=== PATIENT | male | born 1980 | race Hispanic/Latino ===

== ENCOUNTER 2024-08-18 08:53 | Emergency (ER) | payer MEDICARE ==
[~2024-08-18] VITALS: Ht 160 cm; Wt 101.2 kg
--- NOTE | 2024-08-18 10:12 | ERN ---
General Chief Complaint: Eye Problems Stated Complaint: EYE PROBLEM Time Seen by MD: 08:56 History of Present Illness Initial Comments 44-year-old male, history of diabetes, anxiety, hypertension, dyslipidemia, presents for right upper eyelid redness and discharge beginning yesterday. No systemic symptoms. Allergies: Coded Allergies: No Known Drug Allergies (Unverified Allergy, Unknown, 08/18/24) Past Medical History Past Medical History: Anxiety, Diabetes-Type II, High Cholesterol, Hypertension Medical History Other: DEVELOPMENTAL DELAYED Past Surgical History: None ROS Dictation CONSTITUTIONAL: No chills, no fever, no weakness, no diaphoresis, no malaise. HEAD/FACE: No signs of trauma. EENT: Right eyelid swelling and pain RESPIRATORY: No cough, no orthopnea, no SOB, no stridor, no wheezing. CARDIOVASCULAR: No chest pain, no edema, no palpitations, no syncope. GASTROINTESTINAL/ABDOMINAL: No abdominal pain, no constipation, no diarrhea, no nausea, no vomiting. GENITOURINARY: No abnormal discharge, no dysuria, no frequent urination, no hematuria. No complaints of pain in the genitals. MUSCULOSKELETAL: No back pain, no gout, no joint pain, no joint swelling, no muscle pain, no muscle stiffness, no neck pain. INTEGUMENTARY: No change in color, no change in hair/nails, no dryness, no lesion, no lumps, no rash. NEUROLOGICAL/PSYCH: No anxiety, not depressed, no emotional problem, no head ache, no numbness, no pre-existing deficit, no history of seizures, no tremors, no weakness. HEMATOLOGIC/LYMPHATIC: Not anemic, no history of blood clots, no apparent bleeding, no bruising, glands not swollen. All Systems Negative, Except as Noted. Physical Exam Physical Exam Dictation VITAL SIGNS: Reviewed. GENERAL APPEARANCE: Alert, oriented x3, no acute distress, obese. HEAD AND FACE: Non-traumatic. EYES: PERRL, pink conjunctivas, eyelid no trauma, anterior chamber clear. Right upper eyelid erythema and redness and swelling EARS: Pinnas intact and no signs of trauma or erythema. Ear canals clear and no discharge. TMs no erythema. NOSE: No discharge, no bleeding. OROPHARYNX: Mouth normal, teeth no caries, tongue pink. Pharynx clear, no erythema. Tonsils no exudates, no abscesses noted. Mucous membrane moist. NECK: Supple, non-tender, no thyromegaly, no masses, no JVD, no bruits. BREAST: Deferred. CHEST: No tenderness, no crepitus, no paradoxical movement, no retractions. LUNGS: Clear, well-ventilated, symmetric, no rales, no wheezing, no rhonchi, no stridor, good breath sounds bilaterally. HEART: Regular rate, regular rhythm, no murmur, no gallops. VASCULAR: No peripheral edema. ABDOMEN: Soft, positive bowel sounds, nondistended, no guarding, nontender, no rebound, no masses no hepatomegaly, no splenomegaly, no East's sign, no hernias. RECTAL: Deferred. GENITAL: Deferred. NEUROLOGICAL: Normal speech, gross motor function intact, gross sensory function intact. MUSCULOSKELETAL: Neck nontender, full range of motion, back nontender, full range of motion. EXTREMITIES: Nontender, full range of motion. SKIN: Color pink, dry, no turgor, no rash, no lacerations, no abrasions, no contusions. LYMPHATICS: Deferred. MDM CC: Red eyelid swelling Historian: Patient Comorbidities: Dyslipidemia, hypertension, diabetes Differential diagnosis: Blepharitis, chalazion, dark retinitis, dacryocystitis, hard ileum Vital signs are stable No systemic symptoms No labs or imaging indicated Symptoms are consistent with a blepharitis. We will discharge with erythromycin ointment and recommend compresses. ED Course Vital Signs Date Time Temp Pulse Resp B/P (MAP) Pulse Ox O2 Delivery O2 Flow Rate FiO2 08/18/24 09:09 98.1 79 16 112/71 96 Room Air* 0 21 08/18/24 08:55 97.3 75 16 107/70 99 Room Air 0 DX & DISP Disposition: Discharge Departure Impression: Primary Impression: Blepharitis, right eye Condition: Stable Additional Instructions: Shlomo's symptoms are consistent with a blepharitis, or inflammation of the eyelid. I recommend he apply a warm compress 2-4 times daily. Be sure to clean his eyelids. You can continue using the erythromycin ointment. I recommend applying this 2-3 times per day. Please follow up with the primary doctor next week for re-evaluation. Return to the emergency department as needed. Referrals: RADHA LARIOS (PCP) DARYL CROWE DO Aug 18, 2024 10:12
[2024-08-18 10:24] VITALS: BP 103/68; PULSE 79; RESP 16; TEMP 98.1; O2SAT 97
== END 2024-08-18 10:35 | disposition home or self-care (01) ==
LOC: EDH 08:53
DX: H01.001 Unspecified blepharitis right upper eyelid (principal); E11.9 Type 2 diabetes mellitus without complications; E78.00 Pure hypercholesterolemia, unspecified; I10 Essential (primary) hypertension; F41.9 Anxiety disorder, unspecified
CPT/HCPCS: 99281